=== PATIENT | female | born 1950 | race Caucasian/White ===

== ENCOUNTER 2018-08-12 04:55 | Day surgery (SDC) | payer OTHER ==
[2018-08-12] MEDS ORDERED: GABAPENTIN 300 MG CAP PO ONE (05:31)
[2018-08-12] MEDS ORDERED: ACETAMINOPHEN 500 MG TAB PO ONE (05:31)
[2018-08-12] MEDS ORDERED: ceFAZolin 2 GM/DEXTROSE 100 ML IV ONE (05:31)
[2018-08-12] MEDS ORDERED: morphINE PF 0.2 MG in SYRINGE INTRATHECAL 1 SYR IT ONE (05:31)
[2018-08-12] MEDS ORDERED: LR 1,000 ML IV ONE (05:33)
--- NOTE | 2018-08-12 06:10 | POSTANESTH ---
Post Anesthetic Evaluation Cardiovascular Status: Normal, Stable Respiratory Status: Normal, Stable Level of Consciousness/Mental Status: Can Participate in Eval, Moderately Sleepy Pain Control: Adequate, Prn Tx Ordered Nausea/Vomiting Control: Adequate, Prn Tx Ordered Complications Possibly Related to Anesthesia: None Noted
--- NOTE | 2018-08-12 06:14 | PDANEPAE ---
ANE History of Present Illness 68 yo female with lumbar DDD, spondolithesis and dextroscoliosis for Limiflex at L4.L5. ANE Past Medical History - Cardiovascular History Hx Hypertension: No Hx Arrhythmias: No Hx Chest Pain: No Hx Coronary Artery / Peripheral Vascular Disease: No Hx CHF / Valvular Disease: No Hx Palpitations: No Cardiovascular History Comment: hypercholesterolemia - Pulmonary History Hx COPD: No Hx Asthma/Reactive Airway Disease: No Hx Recent Upper Respiratory Infection: No Hx Oxygen in Use at Home: No Hx Sleep Apnea: No Sleep Apnea Screening Result - Last Documented: Negative - Neurologic History Hx Cerebrovascular Accident: No Hx Seizures: No Hx Dementia: No Neurologic History Comment: hx of migraines - Endocrine History Hx Diabetes: No Hypothyroid: No Hyperthyroid: No Obesity: no - Renal History Hx Renal Disorders: No - Liver History Hx Hepatic Disorders: No - Neurological & Psychiatric Hx Hx Neurological and Psychiatric Disorders: No - Cancer History Hx Cancer: Yes Cancer History Comment: SQUAMOUS CELL -. MOHS - Congenital Disorder History Hx Congenital Disorders: No - GI History Hx Gastrointestinal Disorders: Yes Gastrointestinal History Comment: OCC HEARTBURN - Other Health History Other Health History: osteopenia - Chronic Pain History Chronic Pain: Yes (LEG PAIN) - Surgical History Prior Surgeries: WRIST REPAIR W/HARDWARE. COLONOSCOPY ANE Review of Systems Review of Systems: - Exercise capacity METS (RN): 4 METS - Systems Constitutional: Reports: other (had work-up about 2 weeks ago for unusual chest tightness/pressure. Cardiac and PE work-up negative. [place] to be anxiety related. ) Muscolosketal: Reports: back pain, other (R > L leg pain) ANE Patient History - Allergies Allergies/Adverse Reactions: diclofenac [From Voltaren] Allergy (Verified 07/07/18 11:49) Vomiting Sulfa (Sulfonamide Antibiotics) Allergy (Verified 07/07/18 11:49) Hives - Home Medications Home Medications: Aspirin [Aspirin 81mg (*)] 07/07/18 [Last Taken 08/11/18] Cholecalciferol Vit D3 [Vitamin D3 (*)] 07/07/18 [Last Taken 08/05/18] Herbals/Supplements -Info Only 07/07/18 [Last Taken 08/12/17] Ibuprofen [Motrin (*)] 07/07/18 [Last Taken 07/13/18] Simvastatin [Zocor] 07/07/18 [Last Taken 08/11/18] Calcium 08/12/18 [Last Taken 08/05/18] Vicodin 5-300 mg Tablet PRN PRN 08/12/18 [Last Taken 07/13/18] - NPO status NPO Since - Liquids (Date): 08/12/18 NPO Since - Liquids (Time): 04:10 NPO Since - Solids (Date): 08/11/18 NPO Since - Solids (Time): 18:00 - Anes Hx Anes Hx: no prior problems - Smoking Hx Smoking Status: Never smoked - Family Anes Hx Family Anes Hx: neg - N/A Family Hx Anesthesia Complications: none ANE Labs/Vital Signs - Vital Signs Vital Signs: reviewed preoperatively; see RN documention for details Height: 161.29 cm Weight: 55.792 kg ANE Physical Exam - Airway Neck exam: decreased ROM (kyphotic) Mallampati Score: Class 2 Mouth exam: normal dental/mouth exam, small mouth opening - Pulmonary Pulmonary: clear to auscultation - Cardiovascular Cardiovascular: regular rate and rhythym - ASA Status ASA Status: II ANE Anesthesia Plan Anesthesia Plan: general endotracheal anesthesia Lines/Monitors: additional IV
--- NOTE | 2018-08-12 06:56 | PDHPUP ---
History & Physical Update H&P update statement: This history and physical update is based on an assessment of the patient which was completed after admission or registration (within 24 hours), but prior to the surgery/procedure. H&P update: H&P reviewed & patient examined, no change in patient's condition since H&P completed (Consents signed and site markd. All questions answered.)
[2018-08-12] MEDS ORDERED: DIAZEPAM 5 MG TAB PO ONE (06:59)
[2018-08-12] MEDS ORDERED: DIAZEPAM 5 MG TAB ONE (07:05)
[2018-08-12] MEDS ORDERED: PROPOFOL/EMULSION 500 MG/50 ML BOTTLE IV ONE (07:10)
[2018-08-12] MEDS ORDERED: DEXAMETHASONE 4 MG/ML VIAL ONE (07:10)
[2018-08-12] MEDS ORDERED: fentaNYL 100 MCG/2 ML INJ ONE ×2 (07:10)
[2018-08-12] MEDS ORDERED: ROCURONIUM 50 MG/5 ML VIAL ONE (07:10)
[2018-08-12] MEDS ORDERED: LIDOCAINE 2% 5 ML SDV ONE (07:10)
[2018-08-12] MEDS ORDERED: PROPOFOL 200 MG/20 ML VIAL ONE (07:15)
[2018-08-12] MEDS ORDERED: THROMBIN (BOVINE) 20,000 UNIT VIAL TP ONE (07:20)
[2018-08-12] MEDS ORDERED: BUPIVACAINE 0.25% 30 ML SDV ONE ×2 (07:20→07:21)
[2018-08-12] MEDS ORDERED: CHLORHEXIDINE GLUC HIBICLENS 118 ML BTL TP ONE ×2 (07:20→07:37)
[2018-08-12] MEDS ORDERED: EPINEPHrine 1 MG/ML INJ ONE (07:20)
[2018-08-12] MEDS ORDERED: BACITRACIN 50,000 UNITS/10 ML SYR IRR ONE (07:21)
[2018-08-12] MEDS ORDERED: PHENYLEPHRINE HCL 100 MCG/ML SYR ONE ×2 (07:35→09:00)
[2018-08-12] MEDS ORDERED: ONDANSETRON 4 MG/2 ML VIAL ONE (09:34)
[2018-08-12] MEDS ORDERED: KETOROLAC 30 MG/1 ML SDV ONE ×2 (10:10→10:11)
[2018-08-12] MEDS ORDERED: fentaNYL 100 MCG/2 ML INJ IVP PRN (10:13)
[2018-08-12] MEDS ORDERED: PROMETHAZINE HCL 25 MG/ML INJ IVP PRN (10:13)
[2018-08-12] MEDS ORDERED: oxyCODONE IR 5 MG TAB PO PRN (10:13)
[2018-08-12] MEDS ORDERED: NALOXONE HCL 0.4 MG/ML INJ IVP PRN (10:13)
[2018-08-12] MEDS ORDERED: LR 250 ML IV PRN (10:13)
--- NOTE | 2018-08-12 10:50 | POSTOPPROG ---
Post Op Note Date of Operation: 08/12/18 Surgeon: Aram More Bottom Precipitator Operator: MARGARITO Segal PAC Anesthesia: GET(General Endotracheal) Pre-op Diagnosis: spondylothesis, lumbar radiculopathy Post-op Diagnosis: spondylothesis, lumbar radiculopathy Indication: spondylothesis, lumbar radiculopathy Procedure: L4/5 bilateral hemilaminotomy and placement of experiemental Limi- flex
[2018-08-12] MEDS ORDERED: oxyCODONE IR 5 MG TAB ONE (12:21)
[2018-08-12 15:31] VITALS: BP 124/75
--- NOTE | 2018-08-12 15:32 | GOP ---
[f rep st] OPERATIVE REPORT DATE OF OPERATION: 08/12/2018 SURGEON: Aram More MD ACTION INSTALLER: Vinita Segal, MARCEL. ANESTHESIA: General. PREOPERATIVE DIAGNOSIS: 1. L4-L5 grade 1 spondylolisthesis. 2. Severe lateral recess stenosis. 3. Bilateral lower extremity claudication and radiculopathy. 4. Treatment refractory to nonoperative interventions. POSTOPERATIVE DIAGNOSIS: 1. L4-L5 grade 1 spondylolisthesis. 2. Severe lateral recess stenosis. 3. Bilateral lower extremity claudication and radiculopathy. 4. Treatment refractory to nonoperative interventions. PROCEDURE PERFORMED: 1. Bilateral L4-L5 hemilaminotomies with medial facetectomy and lateral recess decompression. 2. Placement of LimiFlex device around the L4-L5 spinous processes. 3. Use of intraoperative fluoroscopy, less than 1 hour physician time. 4. Use of neuromonitoring. 5. Use of the operative microscope. FINDINGS: per imaging SPECIMENS: None. ESTIMATED BLOOD LOSS: 20 mL INDICATIONS: The patient is a very pleasant woman who is suffering from bilateral lower extremity radiculopathy with claudication and low back pain. Imaging studies demonstrative of L4-L5 spondylolisthesis with bilateral lateral recess stenosis and moderate central stenosis. After discussion of risks, benefits, and treatment alternatives, we decided to proceed forth with surgery as described above. The patient was not interested in spinal fusion and, therefore, elected proceed forth with this investigational device. DESCRIPTION OF PROCEDURE: The patient was brought to operating theater and underwent general endotracheal anesthesia without complications. She had Venodynes, MACHELLE hose and the appropriate lines placed by Anesthesia. She was flipped prone on a Harlan table and all bony processes inspected and padded. The lower lumbar region was then prepped and draped in usual sterile surgical fashion. A time-out was completed per protocol. The patient received antibiotics within 1 hour of incision. Using lateral fluoroscopy and spinal needle, we picked our entry point at the L4 -5 level. This was marked in the midline. The incision was infiltrated with Marcaine with epinephrine. The incision was taken down with the scalpel blade, and using monopolar taken down the midline through the lumbodorsal fascia. A subperiosteal dissection carried out to vinicio medial facet joints of L4 and L5. Deep retractors were placed to maintain our exposure. We again confirmed our level using the lateral fluoroscopy. The microscope was brought into the field to assist with microscopic dissection and to maintain illumination and magnification. Using a combination of the bur tip on the drill bit and Kerrison punches, we completed a bilateral L4-L5 hemilaminotomy with medial facetectomy and lateral recess decompression. Once this was achieved we then threaded the LimiFlex device around the cranial aspect of the L4 spinous processes and the caudal aspect of the L5 spinous process. Once this was confirmed with fluoroscopy, we tightened the device down per the scoop operator's instructions. AP and lateral x-rays demonstrated good placement of the device in a lordotic position. The LimiFlex senior java engineer was also present and confirmed the devic placement and tension. At this point, we obtained hemostasis with the bipolar, and the wound was irrigated copiously with bacitracin irrigation. We then closed the wound in multiple layers using Vicryl sutures for the deep layers and Dermabond for the skin. The patient's wounds were dressed sterilely. She was flipped supine onto the transport cart, where she was awakened, extubated taken to recovery room in stable condition. There were no complications and no noted changes on neuromonitoring throughout the procedure. COMPLICATIONS: None. /[id number]/MODL MTDD
== END 2018-08-12 15:43 | disposition home or self-care (01) ==
LOC: FSGY 04:55
PROVIDERS: ATTEND Neurological Surgery
PROC: 8E0WXBG Computer Assisted Procedure of Trunk Region, With Computerized Tomography (ICD-10-PCS; principal; 2018-08-12 07:15)
PROC: 4A10X4G Monitoring of Central Nervous Electrical Activity, Intraoperative, External Approach (ICD-10-PCS; principal; 2018-08-12 07:15)
PROC: BR191ZZ Fluoroscopy of Lumbar Spine using Low Osmolar Contrast (ICD-10-PCS; principal; 2018-08-12 07:15)
PROC: 00NY0ZZ Release Lumbar Spinal Cord, Open Approach (ICD-10-PCS; principal; 2018-08-12 07:15)
PROC: 0SU Lower Joints, Supplement (ICD-10-PCS; principal; 2018-08-12 07:15)
DX: M48.062 Spinal stenosis, lumbar region with neurogenic claudication (principal); M43.16 Spondylolisthesis, lumbar region; M51.36 Other intervertebral disc degeneration, lumbar region; M54.16 Radiculopathy, lumbar region; N20.0 Calculus of kidney; E78.5 Hyperlipidemia, unspecified; G43.909 Migraine, unspecified, not intractable, without status migrainosus; Z88.2 Allergy status to sulfonamides
CPT/HCPCS: C1713; J0171; J0690; J1100; J1885; J2274; J2370; J2405; J2704; J3010